=== PATIENT | male | born 1995 | race Caucasian/White ===

== ENCOUNTER → 2016-12-09 | Outpatient (CLI) | payer OTHER ==
[~2016-12-09] MED LIST: IBUPROFEN800 MG PO
[2016-12-09 16:47] LABS: HEMOGLOBIN 16.6 g/dL (14.1-18.0); LYMPH # 2.1 K/mm3 (0.7-4.5); LYMPH % 39.6 % (10-50)
[2016-12-09 21:38] LABS: BUN 15 mg/dL (7-18)
[2016-12-09 21:59] LABS: GFR (ESTIMATED) 93 ML/MIN (>60)
[2016-12-11 08:47] LABS: HIV Screen 4th Generation wRfx Non Reactive (Non Reactive)
[2016-12-11 10:39] LABS: RA Latex Turbid. <10.0 IU/mL (0.0-13.9); Vitamin B12 436 pg/mL (211-946)
[2016-12-11 12:36] LABS: HBsAg Screen Negative (Negative); Hep A Ab, IgM Negative (Negative); Hep B Core Ab, IgM Negative (Negative); Hep C Virus Ab <0.1 (0.0-0.9)
[2016-12-11 18:41] LABS: Antinuclear Antibodies, IFA Negative (.)
[2016-12-12 03:40] LABS: Protein C-Functional 130 % (73-180); Protein S-Functional 69 % (63-140)
== END ==
LOC: LAB 16:14
PROVIDERS: Nurse Practitioner Family
DX: R53.1 Weakness (principal); R42 Dizziness and giddiness
CPT/HCPCS: G0432

== ENCOUNTER 2017-04-08 15:10 | Emergency (ER) | payer OTHER ==
[~2017-04-08] VITALS: Ht 188 cm; Wt 61.2 kg
--- OUTSIDE RECORDS SUMMARY | 2017-04-08 15:58 | External Medical Summary Rpt | CCD ---
Author Author , ELIGIO DEL VALLE Address Unknown Phone [email or web address] Purpose Continuity of Care Document - 12-09-2016 through 2016 Problems Code Diagnosis DOS Provider Status S93.409A SPRAIN OF UNSP LIGAMENT OF UNSPECIFIED ANKLE, INIT ENCNTR Results Labs Lab Lab Date Result Refere Interp Status Commen Order Detail nces retati t Range on Helicobacter pylori [Presence] in Stomach by urea breath test (12-18-2016 17:31) Helicob Negativ Negativ complet acter 017 e e ed pylori 17:31 [Presen ce] in Stomach by urea breath test Hemoglobin A1c in Blood (12-09-2016 16:15) Hemoglo 5.0 % 0.0% Normal complet bin A1c 017 - ed in 16:15 7.0% Blood Heterophile Ab [Presence] in Serum by Latex agglutination (12-09-2016 16:15) Heterop NEGATIV NEG complet hile Ab 017 E ed 16:15 [Presen ce] in Serum by Latex aggluti nation
--- OUTSIDE RECORDS SUMMARY | 2017-04-08 15:58 | External Medical Summary Rpt | CCD ---
Demographics Preferred Language Serbian Marital Status Unknown Mandaeism Affiliation Unknown Race Unknown Ethnic Group Unknown Author Author ELIGIO Address Unknown Phone Immunization No patient found.
--- OUTSIDE RECORDS SUMMARY | 2017-04-08 15:58 | External Medical Summary Rpt ---
Author Author ELIGIO Clancy, [employer]UD[employer] Organization [employer] Address Unknown Phone Unavailable Results Helicobacter pylori [Presence] in Stomach by urea breath test Observa Value Referen Units Interpr Notes Date tion ce etation Range Helicob Negativ Negativ No No Perform Dec 18 acter e e informa informa ed at: 2017 pylori tion in tion in BN - 5:31 PM [Presen source source [facility] ce] in data data Stomach [place] by [id number], test [place], [place] [id number] Directo r: Keo Harvey MD, Phone: [phone] Bilirubin.direct [Mass/volume] in Serum or Plasma Observa Value Referen Units Interpr Notes Date tion ce etation Range Bilirubin 0.0 - 0.2 mg/dL Normal No Dec 09 .direct informati 2016 4:15 [Mass/vol on in PM ume] in source Serum or data Plasma Comprehensive metabolic 2000 panel in Serum or Plasma Observa Value Referen Units Interpr Notes Date tion ce etation Range Albumin/G 1.1 - 1.8 No Normal No Dec 09 lobulin informati informati 2016 4:15 [Mass on in on in PM ratio] in source source Serum or data data Plasma Albumin 3.4 - 5.0 gm/dL High No Dec 09 [Mass/vol informati 2017 4:15 ume] in on in PM Serum or source Plasma data Alkaline 46 - 116 U/L Normal No Dec 09 phosphata informati 2016 4:15 se on in PM [Enzymati source c data activity/ volume] in Serum or Plasma Bilirubin 0.2 - 1.0 mg/dL Normal No Dec 09 .total informati 2016 4:15 [Mass/vol on in PM ume] in source Serum or data Plasma Urea 7 - 18 mg/dL Normal No Dec 09 nitrogen informati 2016 4:15 [Mass/vol on in PM ume] in source Serum or data Plasma Calcium 8.5 - mg/dL Normal No Dec 09 [Mass/vol 10.1 2016 4:15 ume] in on in PM Serum or source Plasma data Chloride 98 - 107 mmoL/L Normal No Dec 09 [Moles/vo informati 2016 4:15 lume] in on in PM Serum or source Plasma data Carbon 21.0 - mmoL/L Normal No Dec 09 dioxide, 32.0 2016 4:15 total on in PM [Moles/vo source lume] in data Serum or Plasma Creatinin 0.70 - mg/dL Normal No Dec 09 e 1.30 2016 4:15 [Mass/vol on in PM ume] in source Serum or data Plasma Estimated >60 ML/MIN No REFERENCE Dec 09 informati RANGE: 2017 4:15 glomerula on in >60 PM r source ML/MIN/1. filtratio data 73 SQUARE n rate METERSIf (GF this patient is -A merican, then multiply theresult by 1.210. Globulin 1.3 - 3.2 gm/dL Normal No Dec 09 [Mass/vol informati 2016 4:15 ume] in on in PM Serum source data Glucose 74 - 106 mg/dL Normal No Dec 09 [Mass/vol informati 2016 4:15 ume] in on in PM Serum or source Plasma data Potassium 3.5 - 5.1 mmoL/L Normal No Dec 092016 4:15 [Moles/vo on in PM lume] in source Serum or data Plasma Sodium 136 - 145 mmoL/L Normal No Dec 09 [Moles/vo informati 2016 4:15 lume] in on in PM Serum or source Plasma data Aspartate 15 - 37 U/L Normal No Dec 092016 4:15 aminotran on in PM sferase source [Enzymati data c activity/ volume] in Serum or Plasma Alanine 12 - 78 U/L Normal No Dec 09 aminotran informati 2016 4:15 sferase on in PM [Enzymati source c data activity/ volume] in Serum or Plasma Protein 6.4 - 8.2 gm/dL Normal No Dec 09 [Mass/vol informati 2016 4:15 ume] in on in PM Serum or source Plasma data Triiodothyronine (T3) resin uptake in Serum or Plasma Observa Value Referen Units Interpr Notes Date tion ce etation Range Triiodoth 31 - 39 % Normal No Dec 09 yronine informati 2016 4:15 (T3) on in PM resin source uptake in data Serum or Plasma Thyroxine (T4) [Mass/volume] in Serum or Plasma Observa Value Referen Units Interpr Notes Date tion ce etation Range Thyroxine 4.7 - ug/dl Normal No Dec 09 (T4) 13.3 2016 4:15 [Mass/vol on in PM ume] in source Serum or data Plasma Thyrotropin [Units/volume] in Serum or Plasma Observa Value Referen Units Interpr Notes Date tion ce etation Range Thyrotrop 0.358 - uIU/ml Normal No Dec 09 in 3.740 informati 2016 4:15 [Units/vo on in PM lume] in source Serum or data Plasma Urate [Mass/volume] in Serum or Plasma Observa Value Referen Units Interpr Notes Date tion ce etation Range Urate 2.6 - 7.2 mg/dL Normal No Dec 09 [Mass/vol inform2016 4:15 ume] in on in PM Serum or source Plasma data Hemoglobin A1c in Blood Observa Value Referen Units Interpr Notes Date tion ce etation Range Hemoglo 5.0 0.0 - % Normal < 6% Dec 09 bin A1c 7.0 NON-TIMOTEO 2017 in BETIC 4:15 PM Blood LEVEL< 7% CONTROL LED DIABETI C LEVEL> 8% POORLY CONTROL LED DIABETI C LEVEL CBC W Auto Differential panel in Blood Observa Value Referen Units Interpr Notes Date tion ce etation Range Basophils 0 - 0.2 K/MM3 Normal No Dec 092016 4:15 [#/volume on in PM ] in source Blood by data Automated count Basophils 0.1 - 2.0 % Normal No Dec 09 / informati 2016 4:15 leukocyte on in PM s in source Blood by data Automated count Eosinophi 0.0 - 0.4 K/mm3 Normal No Dec 09 ls informati 2016 4:15 [#/volume on in PM ] in source Blood by data Automated count Eosinophi 0.1 - % Normal No Dec 09 ls/100 12.0 informati 2016 4:15 leukocyte on in PM s in source Blood by data Automated count Granulocy 1.3 - 8.0 K/mm3 Normal No Dec 09 rani 2016 4:15 [#/volume on in PM ] in source Blood by data Automated count Granulocy 37.0 - % Normal No Dec 09 rani/100 80.0 informati 2016 4:15 leukocyte on in PM s in source Blood by data Automated count Hematocri 42.0 - % Normal No Dec 09 t [Volume 52.0 informati 2016 4:15 on in PM Fraction] source of Blood data Hemoglobi 14.1 - g/dL Normal No Dec 09 n 18.0 informati 2016 4:15 [Mass/vol on in PM ume] in source Blood data Lymphocyt 0.7 - 4.5 K/mm3 Normal No Dec 09 es informati 2017 4:15 [#/volume on in PM ] in source Unspecifi data ed specimen by Automated count Lymphocyt 10 - 50 % Normal No Dec 09 es informati 2016 4:15 [#/volume on in PM ] in source Unspecifi data ed specimen by Automated count Erythrocy 27 - 31.2 pg Normal No Dec 09 te mean informati 2016 4:15 corpuscul on in PM ar source hemoglobi data n [Entitic mass] Erythrocy 31.8 - g/dl Normal No Dec 09 te mean 35.4 informati 2017 4:15 corpuscul on in PM ar source hemoglobi data n concentra tion [Mass/vol ume] by Automated count Erythrocy 82.2 - fl Normal No Dec 09 te mean 97.8 informati 2017 4:15 corpuscul on in PM ar volume source [Entitic data volume] by Automated count Monocytes 0.1 - 1.0 K/mm3 Normal No Dec 09 informati 2016 4:15 [#/volume on in PM ] in source Blood by data Automated count Monocytes 1.7 - 9.3 % Normal No Dec 09 /100 informati 2017 4:15 leukocyte on in PM s in source Blood by data Automated count Platelet 7.4 - fl Normal No Dec 09 mean 10.4 informati 2016 4:15 volume on in PM [Entitic source volume] data in Blood by Automated count Platelets 142 - 424 K/mm3 Normal No Dec 09 informati 2017 4:15 [#/volume on in PM ] in source Blood data Erythrocy 4.6 - 6.2 M/mm3 Normal No Dec 09 rani informati 2016 4:15 [#/volume on in PM ] in source Amniotic data fluid Erythrocy 11.5 - % Normal No Dec 09 te 17.5 informati 2017 4:15 distribut on in PM ion width source [Entitic data volume] by Automated count Leukocyte 4.8 - K/MM3 Normal No Dec 09 s 10.8 informati 2016 4:15 [#/volume on in PM ] in source Blood data Erythrocyte sedimentation rate by Westergren method Observa Value Referen Units Interpr Notes Date tion ce etation Range Erythrocy 0 - 15 mm/hr Normal No Dec 09 te informati 2016 4:15 sedimenta on in PM tion rate source by data Westergre n method Heterophile Ab [Presence] in Serum by Latex agglutination Observa Value Referen Units Interpr Notes Date tion ce etation Range Heterop NEGATIV NEG No No No Dec 09 hile Ab E informa informa informa 2016 tion in tion in tion in 4:15 PM [Presen source source source ce] in data data data Serum by Latex aggluti nation
--- OUTSIDE RECORDS SUMMARY | 2017-04-08 15:58 | External Medical Summary Rpt | CCD ---
Author Author [employer] Organization [employer] Address Unknown Phone Unavailable Purpose Continuity of Care Document - through 2016
--- OUTSIDE RECORDS SUMMARY | 2017-04-08 15:58 | External Medical Summary Rpt | CCD ---
Demographics Preferred Language Chinese Marital Status Unknown Religion Affiliation Unknown Race Unknown Ethnic Group Unknown Author Author ELIGIO Address Unknown Phone Immunization No patient found.
--- OUTSIDE RECORDS SUMMARY | 2017-04-08 15:58 | External Medical Summary Rpt | CCD ---
Author Author , ELIGIO DEL VALLE Address Unknown Phone [email or web address] Purpose Continuity of Care Document - 12-09-2016 [...]
--- OUTSIDE RECORDS SUMMARY | 2017-04-08 15:58 | External Medical Summary Rpt ---
[...] ce] in data data Stomach [place] by [id number], test [place], [place] [id number]Lab Directo r: Keo Harvey MD, Phone: [phone] Bilirubin.direct [Mass/volume] in Serum or Plasma [...]
[2017-04-08] MEDS ORDERED: ZOFRAN ODT4 MG PO (16:50)
[2017-04-08] MEDS ORDERED: BENTYL10 MG PO (16:50)
--- NOTE | 2017-04-08 16:51 | Urgent Treatment Center Report ---
History of Present Issue Date/Time Seen by Provider 04/08/17 1620 Visit Reason Pt arrived:Walked Presenting Problem:NAUSEA, VOMITING PT ADVISES HE HAS PAIN BELOW HIS UMBILICUS, COLD SWEATS, HOT FLASHES, WEAKNESS THAT BEGAN THIS MORNING Location if Accident: Onset of symptoms date/time:04/08/1704/13/700 or onset unknown for: Have you (or family members/close friends) recently traveled outside the [place]? N If Yes, where/when: Have you had exposure to infectious disease within the past month? TB? Other? Specify: Patient states that he has been having nausea, vomiting and a few eppisodes of diarrhea State that he has been having cramping in his abdomen right before he vomits or has diarrhea States that he has not felt well and feels hot and then cold at times State that he has been having eppisodes since this morning ALLERGIES Coded Allergies: No Known Allergies (04/08/17) Home Medications Active Scripts Ibuprofen (Ibuprofen 800MG) 800 MG PO TID 5 Days Prov: 12/18/15 History Medical History General CAD? No Angina: No [place]: No Hypertension? No Hyperlipidemia? No CHF? No DVT? No PE? No COPD? No Asthma? No Anemia? No GERD? No Gastric ulcers? No GI Bleed? No Hernia? No Thyroid Problems? No Hypothyroidism? No CVA? No Seizures? No Diabetes? No Renal Insuffiency? No UTI? No Stones? No BPH? No GB Disease: No Nephritic Syndrome? No Asplenia? No Hepatitis? No Sickle Cell Disease? No Arthritis? No Migraines? No Cataracts? No Glaucoma? No MRSA? No HIV? No TB? No Anxiety? No Depression? No Cancer? No More? No Immunization HX DT/Tetanus Has Never Had Surgical Hx Previous Surgery?N Social History Smoking Hx Smoker: Current Some Day Smoker Tobacco: Yes Type Cigarettes Alcohol Alcohol: No Review of Systems All Other Systems Reviewed and Negative Constitutional chills, fever Gastrointestinal diarrhea, nausea, vomiting, other (abdominal cramping) Physical Exam Vital Signs Vital Signs Date Time Temp Pulse Resp B/P Pulse O2 O2 Flow FiO2 Ox Delivery Rate 04/08 1612 98.2 60 18 128/77 100 04/08 1555 98.2 60 18 128/77 100 General Appearance normal appearance, WD/WN, no apparent distress Respiratory Status Yes: trachea midline, chest symmetrical, non tender chest. No: respiratory distress. Lung Sounds bilateral: normal breath sounds, lungs clear. Cardiovascular normal exam, regular rate/rhythm, no peripheral edema Gastrointestinal normal bowel sounds, normal exam, non tender, no guarding, no rebound Neurologic alert, normal exam, oriented x 3 Medical Decision Making LABS/Meds/Orders Pt receiving controlled substance in ED? No Results/Orders Current Medication Orders Sig/Jose Start time Last Medication Dose Route Stop Time Status Admin Dicyclomine HCl 20 MG ONCE ONE 04/08 1645 DC PO 04/08 1646 Dicyclomine HCl 0 .STK-MED ONE 04/08 1635 DC PO Ondansetron HCl 4 MG ONCE ONE 04/08 1630 DC 04/08 SL 04/08 1631 1630 Ondansetron HCl 0 .STK-MED ONE 04/08 1617 DC .ROUTE Orders Procedure Date/time Status [facility] FLU A,B 04/08 1615 Active Progress [facility] Progress Notes Comment Patient state that he feels much better sitting up in bed drinking a sprite Able to keep fluids down and states that medication helped with abdominal cramping Departure Departure Time of Disposition 1650 Disposition DC Home or Self Care(routine) Clinical Impression Primary Impression: Viral gastroenteritis Condition STABLE Patient Instructions DI for Viral Gastroenteritis -- Child, Viral Gastroenteritis Additional Instructions try very small amounts of water or suck on ice chips. diarrhea. children and infants should use products formulated for children, like oral rehydration solutions. Never give aspirin to children or teenagers with a viral illness. This can cause Chadwick syndrome, a potentially life-threatening condition. Discharge Counseling Counseled pt/family regarding diagnosis, medications/RX, home care, follow up needs Prescriptions Current Visit Scripts Dicyclomine Hcl (Bentyl 10MG) 10 MG PO Q6HP PRN cramping (IBS) #30 CAP Ondansetron (Zofran 4MG Odt) 4 MG PO Q6HP PRN NAUSEA AND VOMITING #20 TAB at 1650
[2017-04-08 16:58] VITALS: BP 128/77
== END 2017-04-08 16:59 | disposition home or self-care (01) ==
LOC: ER 15:10 → UTC 15:56 → ER 15:56 → UTC 16:59
DX: A08.4 Viral intestinal infection, unspecified (principal)